=== PATIENT | male | born 1975 | race Caucasian/White ===

== ENCOUNTER 2016-04-25 11:21 | Emergency (ER) | payer SELFPAY ==
[~2016-04-25] VITALS: Ht 177.8 cm; Wt 69.4 kg
[~2016-04-25 11:21] MED LIST: BACT800T5 PO
[2016-04-25 11:25] VITALS: BP 123/69; PULSE 73; RESP 16; TEMP 98.1; O2SAT 98
[2016-04-25] MEDS ORDERED: PRED-503 PO (12:15)
--- NOTE | 2016-04-25 12:19 | PD ---
HPI Chief Complaint: Musculoskeletal Complaint Time Seen by Provider: 11:31 Travel History International Travel<30 days: No Contact w/Intl Traveler<30days: No Traveled to known affect area: No History of Present Illness HPI Is a 40-year-old right handed man who for the past several weeks she's been having pain numbness tingling weakness in his right arm. Symptoms started the elbow involving the entire arm below that. He has pain with certain into the hand, and at times it gives out on him. He has some tingling as well. No overt numbness. 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 His a history of back and neck problems no specific problems the right hand in the past. History Past Medical History Medical History: Denies Significant Hx Tetanus Vaccination: Unknown Social History Alcohol Use: Yes Tobacco Use: Yes (cigars) Allergies-Medications (Allergen,Severity, Reaction): Coded Allergies: No Known Allergies (Verified , 04/25/16) Reported Meds & Prescriptions Reported Meds & Active Scripts Active No Active Prescriptions or Reported Medications Review of Systems Except as stated in HPI: all other systems reviewed are Neg Physical Exam Narrative GENERAL: Well-appearing 40 year-old woman, no acute distress. SKIN: Warm and dry. CARDIOVASCULAR: Warm and well perfused. RESPIRATORY: Normal rate and effort. MUSCULOSKELETAL: Focus examination the right upper extremity reveals normal gross appearance of the right arm, maybe a little bit of swelling in the forearm. He has pain with range of motion of the wrist against resistance especially in extension against resistance. There is no overt weakness, but there does seem to be some limitation due to pain and movement of the elbow, strength in the shoulder appears to be full and intact. Direct testing of the radial/shoulder/median nerve reveals to be intact. He does have tenderness over the lateral upper condyle. He has good pulses. NEUROLOGICAL: Awake and alert. No gross deficits. Reflexes are 3+, symmetric in the upper extremities in the biceps, brachioradialis, and triceps reflexes. Some subjective decrease in sensation in the right upper extremity below the elbow, not conforming any dermatomal or peripheral nerve distribution. Data Data Last Documented VS Vital Signs Date Time Temp Pulse Resp B/P Pulse Ox O2 Delivery O2 Flow Rate FiO2 04/25/16 11:25 98.1 73 16 123/69 98 [facility] Medical Decision Making Medical Screen Exam Complete: Yes Emergency Medical Condition: Yes Differential Diagnosis Radiculopathy, peripheral neuropathy, epicondylitis, DVT, other Narrative Course Medical decision making INITIAL cause a 40-year-old male presents emergency department with pain paresthesias in his arm below the elbow that appears to perform the more the lateral side but involves diffusely in the arm. Doesn't appear to conform to any radicular distribution. No obvious peripheral neuropathy. There is no evidence of ulnar nerve entrapment at the elbow. Is a lot of tenderness over the lateral condyle and although the symptoms are somewhat atypical, I think this likely represents a lateral epicondylitis. We'll place him on steroids. Patient declines opiates. Recommend reduced activity level. Outpatient follow- up. Diagnosis Primary Impression: Lateral epicondylitis Qualified Code: M77.11 - Lateral epicondylitis of right elbow Additional Instructions: Take steroids as prescribed. After you finish finished steroids, use Aleve for pain and inflammation. Restrict use of the right arm, no heavy lifting, no repetitive movement. Follow-up with your primary doctor if you are not completely well in 10-14 days. Return to the emergency department for any worsening pain numbness tingling or weakness. Med/Other Pt SpecificInfo: Prescription(s) given Scripts Prednisone (Deltasone)20 Mg Tab20 Mg PO BID 5 Days Prov:Micheal Stone MD 04/25/16 Disposition: 01 DISCHARGE HOME Condition: Stable Micheal Stone MD Apr 25, 2016 12:18
== END 2016-04-25 12:43 | disposition home or self-care (01) ==
LOC: PHEFT 11:21
DX: M77.11 Lateral epicondylitis, right elbow (principal); Z72.0 Tobacco use
CPT/HCPCS: 99283

== ENCOUNTER 2017-09-27 20:12 | Observation (INO) ==
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
--- NOTE | 2017-09-27 21:33 | XR ---
EXAM DATE: 09/27/2017 9:11 PM EDT AGE/SEX: 41 years / Male INDICATIONS: Chest pain and tightness for 2 days. CLINICAL DATA: This is the patient's initial encounter. Patient reports that signs and symptoms have been present for 2 days and indicates a pain score of 4/10. MEDICAL/SURGICAL HISTORY: . Spinal injury. Fusion, cervical. COMPARISON: No prior exams available for comparison. FINDINGS: Single AP view of the chest The lungs are clear. Cardiomediastinal silhouette within norm al limits. No evidence of pleural effusion or pneumothorax. CONCLUSION: No acute cardiopulmonary disease identified. Electronically signed by: Loco Reaves MD 09/27/2017 9:31 PM EDT
[2017-09-27 21:40] LABS: Baso # (Auto) 0.1 th/mm3 (0.0-0.2); Baso % (Auto) 1.3 % (0.0-2.0); Eos # (Auto) 0.1 th/mm3 (0.0-0.4); Eos % (Auto) 2.1 % (0.0-4.0); Hematocrit 46.6 % (39.0-51.0); Hemoglobin 15.9 gm/dL (13.0-17.0); Lymph # (Auto) 2.1 th/mm3 (1.0-4.8); Lymph % (Auto) 30.1 % (9.0-44.0); Mean Corpuscular HGB Conc 34.2 % (32.0-36.0); Mean Corpuscular Hemoglobin 36.3 pg (27.0-34.0); Mean Corpuscular Volume 106.1 fL (80.0-100.0); Mean Platelet Volume 7.9 fL (7.0-11.0); Mono # (Auto) 0.6 th/mm3 (0.0-0.9); Mono % (Auto) 8.9 % (0.0-8.0); Neut % (Auto) 57.6 % (16.0-70.0); Platelet Count 249 th/mm3 (150-450); Red Blood Count 4.39 mil/mm3 (4.50-5.90); Red Cell Distribution Width 12.7 % (11.6-17.2)
[2017-09-27 21:52] LABS: Activated Partial Thrombo Time 24.6 sec (24.3-30.1); Prothrombin Time 10.2 sec (9.8-11.6)
[2017-09-27 22:13] LABS: Anion Gap 7 meq/L (5-15); Blood Urea Nitrogen 18 mg/dL (7-18); Calcium 8.6 mg/dL (8.5-10.1); Carbon Dioxide 28.1 meq/L (21.0-32.0); Chloride 105 meq/L (98-107); Creatine Kinase 180 U/L (39-308); Glomerular Filtration Rate 80 mL/min (>89); Glucose,Random 84 mg/dL (74-106); Sodium 140 meq/L (136-145)
--- NOTE | 2017-09-27 22:13 | MR ---
EXAM DATE: 09/27/2017 10:02 PM EDT AGE/SEX: 41 years / Male INDICATIONS: Gait disorder. CLINICAL DATA: This is the patient's initial encounter. Patient reports that signs and symptoms have been present for 1 day and indicates a pain score of 2/10. MEDICAL/SURGICAL HISTORY: Spinal stenosis. Fusion, cervical. COMPARISON: [facility] [place] CERVICAL SPINE W/O CONTRAST, 09/27/2017. . TECHNIQUE: Multiplanar, multisequence MRI of the thoracic spine was performed. FINDINGS: Bone alignment within normal limits. Bone marrow signal is homogeneous and within normal limits. Spin al cord signal is within normal limits. There is minimal broad-based disc bulge at T11-12. Central ca nal diameter is within normal limits at all levels. Neural foraminal diameters are within normal limi ts at all levels. CONCLUSION: Disc bulge at T11-12. Central canal diameter within normal limits at all levels. Electronically signed by: Loco Reaves MD 09/27/2017 10:11 PM EDT
[2017-09-27 22:14] LABS: Potassium 4.8 meq/L (3.5-5.1)
--- NOTE | 2017-09-27 22:25 | MR ---
EXAM DATE: 09/27/2017 10:09 PM EDT AGE/SEX: 41 years / Male INDICATIONS: Gait disorder. CLINICAL DATA: This is the patient's initial encounter. Patient reports that signs and symptoms have been present for 1 day and indicates a pain score of 2/10. MEDICAL/SURGICAL HISTORY: Spinal stenosis. Fusion, cervical. COMPARISON: No prior exams available for comparison. TECHNIQUE: Multiplanar, multisequence MRI examination of the cervical spine was performed without co ntrast. FINDINGS: Vertebrae: From C5 to C7. Bone fusion between the vertebral bodies at these levels. Bone marrow sign al is within normal limits. Alignment: Normal. Cord: Minimal cystic change within the anterior aspect of the spinal cord at C6-7 level. Post Fossa: The cerebellar tonsils are normal in position. C2-C3: No evidence of focal disc protrusion. Central canal diameter within normal limits. Neural for aminal diameters within normal limits. C3-C4: No evidence of focal disc protrusion. Central canal diameter within normal limits. Neural for aminal diameters within normal limits. C4-C5: No evidence focal disc protrusion. Central canal diameter within normal limits. Neural forami nal diameters within normal limits. C5-C6: Postsurgical level. Central canal diameter within normal limits. Neural foraminal diameters w ithin normal limits. C6-C7: Post surgical level. Central canal diameter within normal limits. Neural foraminal diameters within normal limits. C7-T1: No evidence of focal disc protrusion. Central canal diameter within normal limits. Neural for aminal diameters within normal limits. CONCLUSION: 1. Postsurgical findings at C5-6 and C6-7. Bony fusion is seen at these levels. Minimal cystic mott e in the spinal cord at C6-7. 2. Central canal diameter and neural foraminal diameters within normal limits at all levels. Electronically signed by: Loco Reaves MD 09/27/2017 10:24 PM EDT
--- NOTE | 2017-09-27 22:30 | MR ---
EXAM DATE: 09/27/2017 10:23 PM EDT AGE/SEX: 41 years / Male INDICATIONS: Gait disorder. CLINICAL DATA: This is the patient's initial encounter. Patient reports that signs and symptoms have been present for 1 day and indicates a pain score of 2/10. MEDICAL/SURGICAL HISTORY: Spinal stenosis. Fusion, cervical. COMPARISON: No prior exams available for comparison. TECHNIQUE: Multiplanar, multisequence MRI of the lumbar spine was performed without contrast. Patie nt was scanned in a sitting position; neutral, flexion, and extension scans were performed in the sa gittal plane. FINDINGS: The most caudal-appearing lumbar vertebra is numbered as L5. Vertebra: Homogeneous signal. Normal alignment. Conus: Normal level and configuration. T12-L1: No evidence of focal disc protrusion. Central canal diameter within normal limits. Neural fo raminal diameters within normal limits. L1-L2: No evidence of focal disc protrusion. Central canal diameter within normal limits. Neural fo raminal diameters within normal limits. L2-L3: Disc desiccation and minimal broad-based disc bulge. Bilateral facet arthrosis with 6 mm syn ovial cyst at the right sided facet joint. Mild deformity of the posterior aspect of the thecal sac o n the right. Central canal diameter is within normal limits. Neural foraminal diameters are within no rmal limits. L3-L4: Bilateral facet arthrosis. Central canal diameter within normal limits. Neural foraminal audra meters within normal limits. L4-L5: Broad-based disc bulge and bilateral facet arthrosis. Mild bilateral neural foraminal narrow ing. Flattening of the anterior aspect of the thecal sac and minimal central canal narrowing. L5-S1: Bilateral facet arthrosis. Central canal diameter within normal limits. Neural foraminal audra meters within normal limits. CONCLUSION: 1. Degenerative findings of the lumbar spine. Facet arthrosis and disc bulges at multiple levels. Ce ntral canal diameter within normal limits at all levels. 2. Right-sided synovial cyst at L2-3 mildly deforming the posterior aspect of the thecal sac. 3. Disc bulge and facet arthrosis at L4-5 resulting in mild bilateral neural foraminal narrowing. Electronically signed by: Loco Reaves MD 09/27/2017 10:29 PM EDT
[2017-09-27] MEDS ORDERED: Gadobutrol PF 10 MMOL/10 ML Vial (for RAD) IV.SIG ONE (22:44)
--- NOTE | 2017-09-27 22:44 | MR ---
EXAM DATE: 09/27/2017 10:38 PM EDT AGE/SEX: 41 years / Male INDICATIONS: Frequent falls. Gait imbalance. CLINICAL DATA: This is the patient's initial encounter. Patient reports that signs and symptoms have been present for 1 day and indicates a pain score of 2/10. MEDICAL/SURGICAL HISTORY: Spinal stenosis. Fusion, cervical. COMPARISON: No prior exams available for comparison. TECHNIQUE: Multiplanar, multisequence examination of the brain was performed without contrast. FINDINGS: Cerebrum: The ventricles are normal for age. No evidence of midline shift, mass lesion, hemorrhage or acute infarction. No extraaxial fluid collections are seen. The pituitary gland and suprasellar cistern are normal in configuration. White Matter: No significant signal abnormalities are seen in the white matter. Posterior Fossa: The cerebellum and brainstem are intact. The 4th ventricle is midline. The cerebel lopontine angle is unremarkable. The cerebellar tonsils are normal in position. Diffusion Imaging: No focal areas of restricted diffusion are seen. No evidence of acute infarction . Extracranial: Bilateral maxillary sinus mucosal thickening. CONCLUSION: 1. No acute intracranial findings. 2. Bilateral maxillary sinus mucosal thickening. Electronically signed by: Loco Reaves MD 09/27/2017 10:42 PM EDT
[2017-09-27] MEDS ORDERED: Acetaminophen 500 MG Tablet PO PRN (23:07)
--- NOTE | 2017-09-27 23:11 | MR ---
EXAM DATE: 09/27/2017 11:00 PM EDT AGE/SEX: 41 years / Male INDICATIONS: Frequent falls. Gait imbalance. CLINICAL DATA: This is the patient's initial encounter. Patient reports that signs and symptoms have been present for 2 days and indicates a pain score of 2/10. MEDICAL/SURGICAL HISTORY: Spinal stenosis. Fusion, cervical. COMPARISON: [facility] – [place], [place] HEAD W/O CONTRAST, 09/27/2017. . TECHNIQUE: 3D [id number] MRA was performed. Source images, multiplanar STS MIP, and 3D volum e MIP reconstructions were reviewed. FINDINGS: There is excellent visualization of the major intracranial arteries out to the second-order branch ve ssels. There is no evidence for aneurysm, vessel truncation or stenosis, and no evidence for vascula r malformation. Flow seen in the right PCOM. No flow seen in the anterior communicating artery or lef t PCOM. CONCLUSION: 1. Negative MRA [place]. No evidence of aneurysm or vessel truncation. Electronically signed by: Raul Ayala MD 09/27/2017 11:10 PM EDT
--- NOTE | 2017-09-27 23:13 | MR ---
EXAM DATE: 09/27/2017 11:00 PM EDT AGE/SEX: 41 years / Male INDICATIONS: Ataxia. Gait imbalance. CLINICAL DATA: This is the patient's initial encounter. Patient reports that signs and symptoms have been present for 1 day and indicates a pain score of 2/10. MEDICAL/SURGICAL HISTORY: Spinal stenosis. Fusion, cervical. COMPARISON: No prior exams available for comparison. TECHNIQUE: 10cc ml Gadavist (gadobutrol) contrast infused MRA (single exam dose) of the extracrania l circulation was performed using a neurovascular coil. Postprocessing was performed, including rota ting sub-volume maximum intensity projections of each carotid artery, rotating full-volume maximum in tensity projections of both carotid arteries, sagittal and coronal sliding thin-slab reformations of each carotid artery, and left oblique sliding thin-slab reformation through the aortic arch to includ e the origin of the arch branch vessels. FINDINGS: Aortic Arch : There is a three-vessel origin of the great vessels from the aorta. No evidence of o stial narrowing. Right Carotid : The common carotid artery is intact. The carotid bulb has a normal configuration wi thout ulceration or narrowing. The internal carotid artery lumen is smooth without stenosis. The ex ternal carotid artery is intact. Left Carotid : The common carotid artery is intact. The carotid bulb has a normal configuration wit hout ulceration or narrowing. The internal carotid artery lumen is smooth without stenosis. The ext ernal carotid artery is intact. Vertebrals : The vertebral arteries have a symmetric diameter. No stenotic lesions are seen. CONCLUSION: 1. Negative MRA of the carotids. Percent stenosis is calculated using the diameter of the stenotic region over the diameter of the nor mal distal internal carotid artery Electronically signed by: Raul Ayala MD 09/27/2017 11:12 PM EDT
[2017-09-28 02:50] VITALS: RESP 18
[2017-09-28 04:37] LABS: Creatine Kinase 100 U/L (39-308)
--- NOTE | 2017-09-28 08:02 | P.HPCA ---
History of Present Illness Primary Care Physician: No Primary Care Physician Chief Complaint: Disorientation, chest pain, stuttering, headache History of Present Illness: 41-year-old male with history of traumatic spinal injury and current smoker presents the emergency room for further evaluation of multiple complaints. Complaints include intermittent headaches, bilateral sharp arm pains, chest pain , stuttering, and feelings of disorientation. Onset ongoing, increasing in intensity and frequency. No LOC, no motor weakness. Does endorse chronic issues s/p traumatic spinal injury. Chest pain substernal. Characterized as muscle spasm. Duration varies between 30-40 seconds, sometimes minutes. Associated symptoms include dyspnea. Denied nausea, vomiting, or diaphoresis. inspiration makes discomfort worse. No precipitating or relieving factors. Family history noncontributory for early onset cardiovascular disease. No known hypertension, hyperlipidemia, coronary artery disease, or diabetes. Does not have a primary care provider. No past cardiac testing. No recent illness, trauma, or injury. - Diagnosis (1) Atypical chest pain (2) Radiculopathy of cervical spine (3) Disorientation, unspecified (4) Tobacco abuse Review of Systems All other systems reviewed negative except as stated in [facility] - History History Provided By: Patient - Medical History Medical History: Medical History (Last Reviewed 09/28/17 @ 10:00 by KAREN Hartman) Spinal cord injury Spinal stenosis - Surgical History Surgical History: Surgical History (Last Reviewed 09/28/17 @ 10:00 by KAREN Hartman) History of bladder surgery History of neck surgery Previous back surgery - Tobacco History Second Hand Smoke Exposure: Yes Tobacco Use In Past 30 Days: Yes Smoking Status: Current every day smoker Tobacco Type: Cigarettes Packs Per Day: 1 - Alcohol History How Often Do You Have a Drink Containing Alcohol: 2 to 4 times a month - Substance Use History Substance History: No History of Abuse - Travel History Recent Travel in the [place] Within the Last 8 Weeks: No Recent Travel Out of the Country Within the Last 8 Weeks: No - Immunization History Tetanus Immunization: Unsure Hx Influenza Vaccine This Season: No Medications and Allergies Active Medications: Active Medications Acetaminophen (Tylenol) 500 mg PO Q4H PRN PRN Reason: HEADACHE Nitroglycerin (Nitrostat Sl) 0.4 mg SL Q5M PRN PRN Reason: CHEST PAIN Ondansetron HCl (Zofran Inj) 4 mg IV.PUSH Q6H PRN PRN Reason: NAUSEA Sodium Chloride (Ns Flush) 2 ml IV.FLUSH BID IGNACIA Sodium Chloride (Ns Flush) 2 ml IV.FLUSH PRN PRN PRN Reason: FLUSH AFTER USING IV ACCESS Allergies Allergy/AdvReac Type Severity Reaction Status Date / Time No Known Allergies Allergy Verified 09/27/17 20:23 Home Medications Medication Instructions Recorded Confirmed Type No Known Home Medications 09/27/17 09/27/17 History Exam Vital signs: Vital Signs 09/27/17 20:23 09/27/17 20:59 09/27/17 21:02 Temperature 97.6 F Pulse Rate 77 68 Respiratory Rate 18 16 16 Blood Pressure 139/86 129/78 Pulse Oximetry 99 97 09/27/17 21:18 09/28/17 00:35 09/28/17 01:39 Temperature 98.4 F Pulse Rate 53 L Respiratory Rate 18 18 Blood Pressure 121/85 Pulse Oximetry 98 98 09/28/17 03:38 Temperature 98.2 F Pulse Rate 57 L Respiratory Rate 18 Blood Pressure 106/64 Pulse Oximetry 96 Intake & Output 09/27/17 09/28/17 09/28/17 18:59 06:59 18:59 Weight 68.039 kg Narrative: GENERAL: Alert WN, WD, NAD, pleasant, male HEAD: NC, AT NECK: Supple, no masses, trachea midline CV: RRR, without murmur, rub, gallop, no JVD. No carotid bruits. Chest wall nontender with palpation. RESP: Clear lungs throughout bilateral, no crackles, wheeze, rhonchi, symmetrical chest rise, nonlabored, able to speak in full sentences ABD: Soft, NT, ND, no masses, positive bowel tones EXT: Pulses +2x4, no dependent edema MS: Normal tone x4 extremities, nontender, no obvious deformities, full range of motion NEURO: CN II through CN XII grossly intact, motor strength 5/5, 2 cervical range of motion PSYCH: A+O x3, pleasant affect, appropriate speech, mood, insight and judgment SKIN: Normal turgor, normal texture, no lesions, no rashes, brisk cap refill, even hair distribution Results 09/27/17 21:05 09/27/17 21:05 Cardiac Enzymes 09/27/17 09/28/17 Range/Units 21:05 03:40 CK-MB (CK-2) Less than 1.0 (0.5-3.6) ng/mL Troponin I Less than 0.02 L Less than 0.02 L (0.02-0.05) ng/mL Coagulation 09/27/17 Range/Units 21:05 PT 10.2 (9.8-11.6) sec APTT 24.6 (24.3-30.1) sec CBC 09/27/17 Range/Units 21:05 WBC 7.0 (4.0-11.0) th/mm3 RBC 4.39 L (4.50-5.90) mil/mm3 Hgb 15.9 (13.0-17.0) gm/dL Hct 46.6 (39.0-51.0) % Plt Count 249 (150-450) th/mm3 Neut # (Auto) 4.0 (1.8-7.7) th/mm3 Lymph # (Auto) 2.1 (1.0-4.8) th/mm3 [place] # (Auto) 0.6 (0.0-0.9) th/mm3 Eos # (Auto) 0.1 (0.0-0.4) th/mm3 Baso # (Auto) 0.1 (0.0-0.2) th/mm3 Comprehensive Metabolic Panel 09/27/17 Range/Units 21:05 Sodium 140 (136-145) meq/L Potassium 4.8 (3.5-5.1) meq/L Chloride 105 (98-107) meq/L Carbon Dioxide 28.1 (21.0-32.0) meq/L BUN 18 (7-18) mg/dL Creatinine 1.02 (0.60-1.30) mg/dL Calcium 8.6 (8.5-10.1) mg/dL Intake and Output 09/27/17 09/28/17 09/28/17 22:59 06:59 14:59 Other: Weight 68.039 kg EKG interpretations - EKG EKG results cardiology: sinus rhythm (Normal sinus rhythm, no ST segment changes , tall T waves, normal axis) Caprini VTE Risk Assessment Caprini VTE Risk Assessment: No/Low Risk (score <= 1) Caprini Risk Assessment Model: Point Value = 1 Point Value = 2 Point Value = 3 Point Value = 5 Age 41-60 Minor surgery BMI > 25 kg/m2 Swollen legs Varicose veins or History of unexplained or recurrent spontaneous Oral contraceptives or hormone replacement Sepsis (< 1 month) Serious lung disease, including pneumonia (< 1 month) Abnormal pulmonary function Acute myocardial infarction Congestive heart failure (< 1 month) History of inflammatory bowel disease Medical patient at bed rest Age 61-74 Arthroscopic surgery Major open surgery (> 45 min) Laparoscopic surgery (> 45 min) Malignancy Confined to bed (> 72 hours) Immobilizing plaster cast Central venous access Age >= 75 History of VTE Family history of VTE Factor V Leiden Prothrombin [id number] Lupus anticoagulant Anticardiolipin antibodies Elevated serum homocysteine Heparin-induced thrombocytopenia Other congenital or acquired thrombophilia Stroke (< 1 month) Elective arthroplasty Hip, pelvis, or leg fracture Acute spinal cord injury (< 1 month) Prophylaxis Regimen: Total Risk Factor Score Risk Level Prophylaxis Regimen 0-1 Low Early ambulation 2 Moderate Order ONE of the following: *Sequential Compression Device (SCD) *Heparin 5000 units SQ BID 3-4 Higher Order ONE of the following medications: *Heparin 5000 units SQ TID *Enoxaparin/Lovenox 40 mg SQ daily (WT < 150 kg, CrCl > 30 mL/min) *Enoxaparin/Lovenox 30 mg SQ daily (WT < 150 kg, CrCl > 10-29 mL/min) *Enoxaparin/Lovenox 30 mg SQ BID (WT < 150 kg, CrCl > 30 mL/min) AND/OR *Sequential Compression Device (SCD) 5 or more Highest Order ONE of the following medications: *Heparin 5000 units SQ TID (Preferred with Epidurals) *Enoxaparin/Lovenox 40 mg SQ daily (WT < 150 kg, CrCl > 30 mL/min) *Enoxaparin/Lovenox 30 mg SQ daily (WT < 150 kg, CrCl > 10-29 mL/min) *Enoxaparin/Lovenox 30 mg SQ BID (WT < 150 kg, CrCl > 30 mL/min) AND *Sequential Compression Device (SCD) Assessment and Plan - Assessment (1) Atypical chest pain Code(s): R07.89 - Other chest pain Status: Acute Plan: Admitted chest pain center. ACS ruled out with 3 sets of EKGs and cardiac enzymes. Seen and evaluated by Dr. Jame Egan. Proceed with Lexiscan this morning. If unremarkable, plans will be to discharge home with follow-up with PCP. Made aware of focal free or low cost clinics in the area. (2) Radiculopathy of cervical spine Code(s): M54.12 - Radiculopathy, cervical region Status: Chronic Plan: Chronic, no acute findings. Copies of all cervical, thoracic, and brain MRIs and MRAs completed in ER will be provided for him upon discharge. (3) Disorientation, unspecified Code(s): R41.0 - Disorientation, unspecified Status: Acute (4) Tobacco abuse Code(s): Z72.0 - Tobacco use Status: Chronic Plan: Strongly encouraged and stressed importance of tobacco cessation. Instructed to quit smoking. H&P: Quality - VTE Deep Vein Thrombosis/Pulmonary Embolism Present on Admission: No
--- NOTE | 2017-09-28 08:48 | ECG ---
Date Performed: 09/27/2017 Time Performed: 20:43:07 PTAGE: 41 years EKG: Sinus rhythm INCOMPLETE RIGHT BUNDLE BRANCH BLOCK BORDERLINE ECG PREVIOUS TRACING : 09/23/2017 17.09 DOCTOR: Bev Sheth Interpretating Date/Time 09/28/2017 08:46:40
[2017-09-28] MEDS ORDERED: Regadenoson Inj 0.4 MG/5 ML Syringe IV.PUSH ONE (11:51)
--- NOTE | 2017-09-28 12:52 | TR ---
Date Performed: 09/28/2017 Time Performed: 12:00:27 DOCTOR: Jame Egan DRUG LIST: CLINICAL HISTORY: REASON FOR TEST: REASON FOR ENDING: OBSERVATION: CONCLUSION: COMMENTS: Lexiscan stress test was performed under standard four minute protocol. Radionuclide was injected one minute prior to ending the test. No electrocardiographic abormalities were present t o suggest ischemia. Nuclear imaging and interpretation are pending.
--- NOTE | 2017-09-28 12:53 | ECG ---
Date Performed: 09/28/2017 Time Performed: 03:36:26 PTAGE: 41 years EKG: Sinus rhythm WITH SINUS ARRHYTHMIA NORMAL ECG PREVIOUS TRACING : 09/28/2017 00.40 Since previous tracing, no significant change noted DOCTOR: Jame Egan Interpretating Date/Time 09/28/2017 12:52:36
--- NOTE | 2017-09-28 12:55 | ECG ---
Date Performed: 09/28/2017 Time Performed: 00:40:16 PTAGE: 41 years EKG: SINUS BRADYCARDIA WITH SINUS ARRHYTHMIA TALL T-WAVES, SUGGESTS HYPERKALEMIA ABNORMAL ECG PREVIOUS TRACING : 09/27/2017 20.43 Since previous tracing, no significant change noted DOCTOR: Jame Egan Interpretating Date/Time 09/28/2017 12:53:06
--- NOTE | 2017-09-28 13:07 | NM ---
EXAM DATE: 09/28/2017 12:51 PM EDT AGE/SEX: 41 years / Male INDICATIONS:Angina. . Left sided chest pain. CLINICAL DATA: This is the patient's initial encounter. Patient reports that signs and symptoms have been present for 1 day and indicates a pain score of 1/10. MEDICAL/SURGICAL HISTORY: Hypertension. . Bladder, neck and back surgery. COMPARISON: No prior exams available for comparison. DOSE: 8.1 mCi Tc 99m Myoview at rest 26.5 mCi [id number] at stress 0.4 mg Lexiscan STRESS SYMPTOMS: Short of breath, nausea and lightheaded. EJECTION FRACTION: 48 % TECHNIQUE: The patient underwent pharmacologic stress with infusion of prescribed dose. Continuous ECG tracing was monitored during stress. Gated SPECT imaging was performed after stress and conventi onal SPECT imaging was performed at rest. The examination was performed on a SPECT/CT scanner, both attenuation and non-corrected datasets were reviewed. FINDINGS: Distribution: The maximum perfused segment at stress is in the septal wall. Perfusion Study: The pattern of perfusion at stress is within normal limits. Gated Study: There are intact wall motion and wall thickening without significant hypokinetic or dys kinetic segments. The ejection fraction is calculated at 48%. RISK CATEGORY: Intermediate (1-3 % Annual Mortality Rate) CONCLUSION: 1. Ejection fraction mildly diminished at 48%. 2. No significant reversibility to suggest ischemia. Electronically signed by: Fox Gamez MD 09/28/2017 1:06 PM EDT
[2017-09-28 14:02] LABS: Creatine Kinase 117 U/L (39-308)
[2017-09-30 20:00] VITALS: BP 103/64; PULSE 51; TEMP 97.5; O2SAT 97
== END 2017-09-28 14:00 | disposition home or self-care (01) ==
LOC: NEPE 20:12 → NEPGCP 20:12
DX: R51 Headache; M71.38 Other bursal cyst, other site; R07.89 Other chest pain; R41.0 Disorientation, unspecified; M79.601 Pain in right arm; M62.838 Other muscle spasm; M48.00 Spinal stenosis, site unspecified; M79.602 Pain in left arm; M54.12 Radiculopathy, cervical region; M47.896 Other spondylosis, lumbar region; F17.210 Nicotine dependence, cigarettes, uncomplicated; M51.24 Other intervertebral disc displacement, thoracic region